=== PATIENT | male | born 1955 | race Two or more races ===

== ENCOUNTER 2017-03-31 16:45 | Emergency (ER) | payer MEDICARE, MEDICAID ==
[2017-03-31] MEDS ORDERED: Acetaminophen 500 MG Tab PO ONE (16:59)
--- NOTE | 2017-03-31 17:04 | EDM.PDOC ---
ED HPI GENERAL MEDICAL PROBLEM - General Chief Complaint: Abdominal Pain Stated Complaint: ABDOMINAL PAIN Time Seen by Provider: 03/31/17 16:50 Source of Information: Reports: Patient, RN History Limitations: Reports: No Limitations - History of Present Illness INITIAL COMMENTS - FREE TEXT/NARRATIVE: 61 yo male here with a 3 d hx of intermittent L sided abdominal pain. Stools slightly hard. No urinary sx's. No fever or nausea. Has had this before and nothing was found. He has not been to the clinic for this. Onset Date: 03/28/17 Duration: Waxing/Waning Location: Reports: Abdomen Quality: Reports: Pressure Severity: Moderate Improves with: Reports: None Worsens with: Reports: None Context: Reports: Other (Hx of the same and nothing was found.) Associated Symptoms: Reports: No Other Symptoms Treatments ENGINE TURNER: Reports: Other (see below) (None) Left Lower Abdominal Pain Score (Numeric/FACES): 6 - Related Data Allergies Allergy/AdvReac Type Severity Reaction Status Date / Time No Known Allergies Allergy Verified 03/31/17 16:56 Home Meds: Home Meds Acetaminophen with Codeine [Tylenol with Codeine #3 Tablet] 1 tab BID 08/26/15 [ History] Past Medical History - Past Health History Medical/Surgical History: Denies Medical/Surgical History Musculoskeletal History: Reports: Arthritis, Back Pain, Chronic Other Musculoskeletal History: States he has chronic back pain. Neurological History: Reports: Headaches, Chronic Dermatologic History: Reports: Other (See Below) Other Dermatologic History: NOne - Past Surgical History Other HEENT Surgeries/Procedures: Pt. reports that he does need to have some cartilage removed in his nose. Musculoskeletal Surgical History: Reports: Other (See Below) Other Musculoskeletal Surgeries/Procedures:: L shoulder arthroscopy. L subacromial space decompression with removal of inflamed synovium. L rotator cuff repair (supraspinatus). Date of surgery: 04-03-16 Social & Family History - Family History Family Medical History: Noncontributory - Tobacco Use Smoking Status *Q: Never Smoker Years of Tobacco use: 4 Second Hand Smoke Exposure: No - Caffeine Use Caffeine Use: Reports: Coffee - Alcohol Use Days Per Week of Alcohol Use: 0 - Recreational Drug Use Recreational Drug Use: No ED ROS GENERAL - Review of Systems Review Of Systems: See Below Constitutional: Reports: No Symptoms HEENT: Reports: No Symptoms Respiratory: Reports: No Symptoms Cardiovascular: Reports: No Symptoms GI/Abdominal: Reports: Abdominal Pain. Denies: Black Stool, Bloody Stool, Constipation, Diarrhea, Decreased Appetite, Distension, Flatus, Hematemesis, Hematochezia, Melena, Nausea, Stool Incontinence, Vomiting : Reports: No Symptoms Musculoskeletal: Reports: No Symptoms Skin: Reports: No Symptoms Neurological: Reports: No Symptoms Psychiatric: Reports: No Symptoms ED EXAM, GI/ABD - Physical Exam Exam: See Below Exam Limited By: No Limitations General Appearance: Alert, WD/WN, No Apparent Distress Eyes: Bilateral: Normal Appearance, EOMI Ears: Normal External Exam, Normal Canal, Hearing Grossly Normal, Normal TMs Nose: Normal Inspection, Normal Mucosa, No Blood Throat/Mouth: Normal Inspection, Normal Lips, Normal Oropharynx, Normal Voice, No Airway Compromise Head: Atraumatic, Normocephalic Neck: Normal Inspection, Supple, Non-Tender Respiratory/Chest: No Respiratory Distress, Lungs Clear, Normal Breath Sounds, No Accessory Muscle Use, Chest Non-Tender Cardiovascular: Regular Rate, Rhythm, No Edema GI/Abdominal Exam: Normal Bowel Sounds, Soft, No Distention, Tender (Very minimal L lateral tenderness.). No: Guarding, Rigid, Rebound Back Exam: Normal Inspection. No: CVA Tenderness (R), CVA Tenderness (L) Extremities: Normal Inspection, Normal Range of Motion, Non-Tender, No Pedal Edema Neurological: Alert, Oriented, CN II-XII Intact, Normal Cognition, No Motor/ Sensory Deficits Psychiatric: Normal Affect, Normal Mood Skin Exam: Warm, Dry, Intact, Normal Color, No Rash Lymphatic: No Adenopathy Course - Vital Signs Text/Narrative:: acetaminophen 1000 mg po Last Recorded V/S: Last Vital Signs Temp 37.6 C 03/31/17 16:57 Pulse 88 03/31/17 16:57 Resp 14 03/31/17 16:57 BP 122/74 03/31/17 16:57 Pulse Ox 100 03/31/17 16:57 - Orders/Labs/Meds Labs: Laboratory Tests 03/31/17 03/31/17 03/31/17 Range/Units 17:15 17:15 17:15 WBC 14.8 H (4.5-12.0) X10-3/uL RBC 5.05 (4.30-5.75) x10(6)uL Hgb 15.6 H (11.5-15.5) g/dL Hct 45.6 (30.0-51.3) % MCV 90.2 (80-96) fL MCH 31.0 (27.7-33.6) pg MCHC 34.3 (32.2-35.4) g/dL RDW 12.1 (11.5-15.5) % Plt Count 281 (125-369) X10(3)uL Creatinine 0.9 (0.70-1.30) mg/dL Est Cr Clr Drug Dosing 81.60 mL/min Estimated GFR (MDRD) > 60 (>60) C-Reactive Protein < 0.2 L (0.5-0.9) mg/dL Meds: Medications Discontinued Medications Generic Name Dose Route Start Last Admin Trade Name Freq PRN Reason Stop Dose Admin Acetaminophen 1,000 mg 03/31/17 16:59 03/31/17 17:25 Tylenol Extra Strength PO 03/31/17 17:00 1,000 mg ONETIME ONE Administration Departure - Departure Time of Disposition: 17:51 Disposition: Home, Self-Care 01 Condition: Good Clinical Impression: Nonspecific abdominal pain - Discharge Information Referrals: PCP,None [Primary Care Provider] - Forms: ED Department Discharge Additional Instructions: Miralax 1 capful daily. Acetaminophen 1000 mg every 6 hrs with food. Recheck in the clinic 1-2 days. Return here if worse and unable to get into the clinic. High fiber diet.
[2017-03-31 17:07] VITALS: BP 122/74
== END 2017-03-31 18:40 | disposition home or self-care (01) ==
LOC: FB.ED 16:45
DX: R10.9 Unspecified abdominal pain (principal)
CPT/HCPCS: 36415; 82565; 85027; 86140; 99284; A9270; 99283

== ENCOUNTER 2017-06-06 20:23 | Emergency (ER) | payer MEDICARE, MEDICAID ==
--- NOTE | 2017-06-06 20:35 | EDM.PDOC ---
ED HPI GENERAL MEDICAL PROBLEM - General Stated Complaint: SORE THROAT AND EAR PAIN Time Seen by Provider: 06/06/17 20:23 Source of Information: Reports: Patient History Limitations: Reports: No Limitations, Language Barrier - History of Present Illness INITIAL COMMENTS - FREE TEXT/NARRATIVE: 61 y.o.w.m came to the ed due to sore throat and left ear pain. It hurts to swallow. No F/C no N/V/D or any other acute medical issue. BP 125/83 pulse 87 RR 18 Temp 36.8 Pulse ox 98% on RA Onset Date: 06/06/17 Onset Time: 09:00 Duration: Hour(s):, Intermittent Location: Reports: Face Quality: Reports: Ache, Burning Severity: Moderate Improves with: Reports: None Worsens with: Reports: Movement Sore throat, bilat ear pain Pain Score (Numeric/FACES): 6 - Related Data Allergies Allergy/AdvReac Type Severity Reaction Status Date / Time No Known Allergies Allergy Verified 06/06/17 21:54 Home Meds: Home Meds Acetaminophen with Codeine [Tylenol with Codeine #3 Tablet] 1 tab TID 08/26/15 [ History] Amoxicillin/Potassium Clav [Augmentin 875-125 Tablet] 1 each PO BID #20 tablet 06/06/17 [Rx] Celecoxib 200 mg BID 06/06/17 [History] Hydrocodone/Acetaminophen [Hydrocodon-Acetaminophen 5-325] 1 tab BID PRN [History] Past Medical History - Past Health History Medical/Surgical History: Denies Medical/Surgical History Musculoskeletal History: Reports: Arthritis, Back Pain, Chronic Other Musculoskeletal History: States he has chronic back pain. Neurological History: Reports: Headaches, Chronic Dermatologic History: Reports: Other (See Below) Other Dermatologic History: NOne - Past Surgical History Other HEENT Surgeries/Procedures: Pt. reports that he does need to have some cartilage removed in his nose. Musculoskeletal Surgical History: Reports: Other (See Below) Other Musculoskeletal Surgeries/Procedures:: L shoulder arthroscopy. L subacromial space decompression with removal of inflamed synovium. L rotator cuff repair (supraspinatus). Date of surgery: 04-03-16 Social & Family History - Family History Family Medical History: Noncontributory - Tobacco Use Smoking Status *Q: Never Smoker Years of Tobacco use: 4 Second Hand Smoke Exposure: No - Caffeine Use Caffeine Use: Reports: Coffee - Alcohol Use Days Per Week of Alcohol Use: 0 - Recreational Drug Use Recreational Drug Use: No ED ROS ENT - Review of Systems Review Of Systems: See Below Constitutional: Reports: No Symptoms HEENT: Reports: Ear Pain, Throat Pain Respiratory: Reports: No Symptoms Cardiovascular: Reports: No Symptoms Endocrine: Reports: No Symptoms GI/Abdominal: Reports: No Symptoms : Reports: No Symptoms Musculoskeletal: Reports: No Symptoms Skin: Reports: No Symptoms Neurological: Reports: No Symptoms Psychiatric: Reports: No Symptoms Hematologic/Lymphatic: Reports: No Symptoms ED EXAM, ENT - Physical Exam Exam: See Below Exam Limited By: No Limitations General Appearance: Alert, WD/WN, Mild Distress Eye Exam: Right Eye: Other, Bilateral Eye: Normal Inspection Ears: TM Dullness, TM Erythema Nose: Normal Inspection, Normal Mucousa Mouth/Throat: Normal Inspection, Normal Gums, Normal Lips, Pharyngeal Erythema Head: Atraumatic, Normocephalic Neck: Normal Inspection, Supple, Non-Tender Respiratory/Chest: No Respiratory Distress, Lungs Clear, Normal Breath Sounds, No Accessory Muscle Use, Chest Non-Tender Cardiovascular: Normal Peripheral Pulses, Regular Rate, Rhythm, No Edema GI/Abdominal: Normal Bowel Sounds, Soft, Non-Tender, No Organomegaly, No Abnormal Bruit, No Mass (Male) Exam: Deferred Rectal (Males) Exam: Deferred Back: Normal Inspection, Full Range of Motion Extremities: Normal Inspection, Normal Range of Motion, Non-Tender, No Pedal Edema Neurological: Alert, Oriented, CN II-XII Intact, Normal Cognition, Normal Gait Psychiatric: Normal Affect, Normal Mood Skin: Warm, Dry, Intact, Normal Color, No Rash Lymphatic: No Adenopathy Course - Vital Signs Text/Narrative:: 61 y.o.w.m came to the ed due to sore throat and left ear pain. It hurts to swallow. No F/C no N/V/D or any other acute medical issue. BP 125/83 pulse 87 RR 18 Temp 36.8 Pulse ox 98% on RA PE: WNWD W M wiuth sore throat and left earpain Labs: RST neg and Influenza neg Cx are pending Impression: Pharyngitis )strep presumed) Left OM/OE Tx: Augmentin, Cortisporine Reexam: Improved Plan: D/C with instructions Last Recorded V/S: Last Vital Signs Temp 37.0 C 06/06/17 20:36 Pulse 83 06/06/17 20:36 Resp 18 06/06/17 22:05 BP 116/82 06/06/17 22:05 Pulse Ox 98 06/06/17 22:05 - Orders/Labs/Meds Orders: Active Orders 24 hr Category Date Time Status CULTURE STREP A CONFIRMATION [RM] Stat Lab 06/06/17 20:35 Results INFLUENZA A+B AG SCREEN [RM] Stat Lab 06/06/17 20:35 Ordered STREP SCRN A RAPID W CULT CONF [] Stat Lab 06/06/17 20:35 Ordered Meds: Medications Discontinued Medications Generic Name Dose Route Start Last Admin Trade Name Yaritza PRN Reason Stop Dose Admin Amoxicillin/Clavulanate Potassium 1 tab 06/06/17 21:53 06/06/17 22:04 Augmentin 875 Mg/125 Mg PO 06/06/17 21:54 1 tab ONETIME ONE Administration Departure - Departure Time of Disposition: 21:52 Disposition: Home, Self-Care 01 Condition: Good Clinical Impression: Pharyngitis Otitis media Qualifiers: Otitis media type: unspecified Chronicity: acute Qualified Code(s): H66.90 - Otitis media, unspecified, unspecified ear - Discharge Information Prescriptions: Amoxicillin/Potassium Clav [Augmentin 875-125 Tablet] 1 each PO BID #20 tablet Instructions: Amoxicillin; Clavulanic Acid tablets, Otitis Media, Adult, Easy- to-Read, Pharyngitis, [id number] Referrals: Danette Bazan, PLAN MANAGER [Primary Care Provider] - Forms: ED Department Discharge Additional Instructions: Please take the Augmentin as recommended, please take tylenol/advil for pain please follow up at clinic in next 2-3 days at clinic for recheck, come back if your symptoms get worse acutely. Increase fluids. - My Orders Last 24 Hours: My Active Orders 06/06/17 20:35 CULTURE STREP A CONFIRMATION [RM] Stat INFLUENZA A+B AG SCREEN [RM] Stat STREP SCRN A RAPID W CULT CONF [] Stat - Assessment/Plan Last 24 Hours: My Active Orders 06/06/17 20:35 CULTURE STREP A CONFIRMATION [RM] Stat INFLUENZA A+B AG SCREEN [RM] Stat STREP SCRN A RAPID W CULT CONF [RM] Stat
[2017-06-06] MEDS ORDERED: Amoxicillin/Clavulanate K 875-125 MG Tab PO ONE (21:53)
[2017-06-07 01:20] VITALS: BP 116/82
== END 2017-06-06 22:07 | disposition home or self-care (01) ==
LOC: FB.ED 20:23
DX: H66.92 Otitis media, unspecified, left ear (principal); H60.92 Unspecified otitis externa, left ear; J02.9 Acute pharyngitis, unspecified
CPT/HCPCS: 87081; 87804; 87880; 99283; A9270

== ENCOUNTER 2018-04-18 12:02 | Emergency (ER) | payer MEDICARE, MEDICAID ==
--- NOTE | 2018-04-18 12:28 | EDM.PDOC ---
ED HPI GENERAL MEDICAL PROBLEM - General Stated Complaint: RIGHT KNEE PAIN Time Seen by Provider: 04/18/18 12:02 Source of Information: Reports: Patient, Family History Limitations: Reports: No Limitations - History of Present Illness INITIAL COMMENTS - FREE TEXT/NARRATIVE: 62 y.o.male came to the ed with hsi sister because of right knee pain. Pt is scheduled for an MRI of his right knee. No trauma. Pt has FROM of his right knee and no swelling. His PMD gave him [place] every 6 hours as needed. The patient is here for the question if he could tale 1-2 pills every 6 hours instead of only 1 pill every 6 hours as needed. He denies SOB. N/V/D no dizziness. He requested to be transported by wheel chair in and out from the ed even though he could walk. No other acute medical issues. BP 135/76 RR 16 Pulse ox 98% on RA pulse 68 Temp 36.6 Onset Date: 04/10/18 Onset Time: 05:00 Duration: Day(s):, Week(s): Location: Reports: Lower Extremity, Right (knee) Quality: Reports: Burning, Dull, Same as Previous Episode Severity: Mild Improves with: Reports: Rest Worsens with: Reports: Movement Context: Reports: Other Associated Symptoms: Reports: No Other Symptoms right knee Pain Score (Numeric/FACES): 5 - Related Data Allergies Allergy/AdvReac Type Severity Reaction Status Date / Time No Known Allergies Allergy Verified 06/06/17 21:54 Home Meds: Home Meds Acetaminophen with Codeine [Tylenol with Codeine #3 Tablet] 1 tab TID 08/26/15 [ History] Amoxicillin/Potassium Clav [Augmentin 875-125 Tablet] 1 each PO BID #20 tablet 06/06/17 [Rx] Celecoxib 200 mg BID 06/06/17 [History] Hydrocodone/Acetaminophen [Hydrocodon-Acetaminophen 5-325] 1 tab BID PRN [History] Past Medical History - Past Health History Medical/Surgical History: Denies Medical/Surgical History HEENT History: Reports: None Respiratory History: Reports: Asthma Musculoskeletal History: Reports: Arthritis, Back Pain, Chronic Other Musculoskeletal History: States he has chronic back pain. Neurological History: Reports: Headaches, Chronic Psychiatric History: Reports: Anxiety Endocrine/Metabolic History: Reports: Obesity/BMI 30+ Dermatologic History: Reports: Other (See Below) Other Dermatologic History: NOne - Infectious Disease History Infectious Disease History: Reports: Chicken Pox - Past Surgical History Other HEENT Surgeries/Procedures: Pt. reports that he does need to have some cartilage removed in his nose. Musculoskeletal Surgical History: Reports: Other (See Below) Other Musculoskeletal Surgeries/Procedures:: L shoulder arthroscopy. L subacromial space decompression with removal of inflamed synovium. L rotator cuff repair (supraspinatus). Date of surgery: 04-03-16 Social & Family History - Family History Family Medical History: Noncontributory - Caffeine Use Caffeine Use: Reports: Coffee ED ROS GENERAL - Review of Systems Review Of Systems: See Below Constitutional: Reports: No Symptoms HEENT: Reports: No Symptoms Respiratory: Reports: No Symptoms Cardiovascular: Reports: No Symptoms Endocrine: Reports: No Symptoms GI/Abdominal: Reports: No Symptoms : Reports: No Symptoms Musculoskeletal: Reports: Joint Pain (knee) Skin: Reports: No Symptoms Neurological: Reports: No Symptoms Psychiatric: Reports: No Symptoms Hematologic/Lymphatic: Reports: No Symptoms Immunologic: Reports: No Symptoms ED EXAM, GENERAL - Physical Exam Exam: See Below Exam Limited By: No Limitations General Appearance: Alert, WD/WN, Mild Distress, Thin Eye Exam: Bilateral Eye: Normal Inspection Ears: Normal External Exam Ear Exam: Bilateral Ear: Auricle Normal Nose: Normal Inspection, Normal Mucosa, No Blood Throat/Mouth: Normal Inspection, Normal Lips, Normal Voice, No Airway Compromise Head: Atraumatic, Normocephalic Neck: Normal Inspection, Supple, Non-Tender Respiratory/Chest: No Respiratory Distress, Lungs Clear, Normal Breath Sounds, Chest Non-Tender Cardiovascular: Normal Peripheral Pulses, Regular Rate, Rhythm, No Edema, No JVD GI/Abdominal: Normal Bowel Sounds, Soft, Non-Tender, No Abnormal Bruit, No Mass , Pelvis Stable (Male) Exam: Deferred Rectal (Males) Exam: Deferred Back Exam: Normal Inspection, Full Range of Motion Extremities: Normal Inspection, Normal Range of Motion, Non-Tender, No Pedal Edema, Other (pt says he has pain in his right knee, his PMD gave him norco for knee pain) Neurological: Alert, Oriented, CN II-XII Intact, Normal Cognition Psychiatric: Normal Affect, Normal Mood Skin Exam: Warm, Dry, Intact, Normal Color, No Rash Lymphatic: No Adenopathy Course - Vital Signs Text/Narrative:: 62 y.o.male came to the ed with hsi sister because of right knee pain. Pt is scheduled for an MRI of his right knee. No trauma. Pt has FROM of his right knee and no swelling. His PMD gave him [place] every 6 hours as needed. The patient is here for the question if he could tale 1-2 pills every 6 hours instead of only 1 pill every 6 hours as needed. He denies SOB. N/V/D no dizziness. He requested to be transported by wheel chair in and out from the ed even though he could walk. No other acute medical issues. BP 135/76 RR 16 Pulse ox 98% on RA pulse 68 Temp 36.6 WNWD male in no NAD. FROM of all his extremities, no swelling. Asking if he can douple his [place] dose. The side effects from [place] were explained to Pt Labs/Imaging: Not indicated Impression: 1)H/O right knee discomfort, 2)medical advice Tx: None in the ED Reexam: Pt was doing fine, requesting to be escorted by wheel chair to the ed waiting room where his sister was waiting for him, he was able to ambulate, had no pain Plan: D/C with instructions Last Recorded V/S: Last Vital Signs Temp 36.6 C 04/18/18 12:40 Pulse 68 04/18/18 12:40 Resp 17 04/18/18 12:40 BP 135/76 04/18/18 12:40 Pulse Ox 96 04/18/18 12:40 Departure - Departure Time of Disposition: 12:25 Disposition: Home, Self-Care 01 Condition: Good Clinical Impression: Knee pain, right Qualifiers: Chronicity: chronic Qualified Code(s): M25.561 - Pain in right knee - Discharge Information Referrals: Danette Bazan NP [Primary Care Provider] - Forms: ED Department Discharge Additional Instructions: Please apply ice to the affected area, please take the medication for sevee pain only and f/u with you Doctor as scheduled this Friday
[2018-04-18 13:21] VITALS: BP 135/76
== END 2018-04-18 12:50 | disposition home or self-care (01) ==
LOC: FB.ED 12:02
DX: M25.561 Pain in right knee (principal)
CPT/HCPCS: 99282

== ENCOUNTER 2018-04-24 22:14 | Emergency (ER) | payer MEDICARE, MEDICAID ==
[2018-04-24] MEDS ORDERED: Ibuprofen 600 MG Tab PO ONE (22:36)
--- NOTE | 2018-04-24 22:40 | EDM.PDOC ---
ED HPI GENERAL MEDICAL PROBLEM - General Chief Complaint: Lower Extremity Injury/Pain Stated Complaint: PAIN IN RIGHT KNEE Time Seen by Provider: 04/24/18 22:14 Source of Information: Reports: Patient History Limitations: Reports: No Limitations - History of Present Illness INITIAL COMMENTS - FREE TEXT/NARRATIVE: 62 y.o.m walked to te ed, wanting a narcotic shot for his right knee pain. He said again, he has an appointment this Friday for an MRI of his right knee. Pt told me the same story when I saw him last. There was no appointment for an MRI. He received 90 tablets of [place] on 04/10/2018, 40 tablets of [place] on 2018 90 tables of Noro on 03/12/2018 etc from his PMD, all filled at [facility]. He has FROM of his knes with out any discomfort. No N/V/D no Dizziness or any other acute medical issues. He insisted to get a shot of Narcotics for pain. BP 125/82, Pulse ox 97, Pulse 75 Temp 36.8 RR 18 Onset: Unknown/Unsure Onset Date: 04/10/18 Onset Time: 06:00 Duration: Week(s):, Chronic Location: Reports: Lower Extremity, Right Quality: Reports: Dull Severity: Mild (or no pain.) Improves with: Reports: Other (pt is ambulating very well) Worsens with: Reports: Other (not in any obvious pain/discomfort) Context: Reports: Other (pt had multiple vists in this ed requesting Narcotic shots) Associated Symptoms: Reports: No Other Symptoms Treatments MANAGER FIXED INCOME: Reports: Other (see below) (pt was prescibed 90 tables on 2018 and 40 tabls of Hydroco) - Related Data Allergies Allergy/AdvReac Type Severity Reaction Status Date / Time No Known Allergies Allergy Verified 04/24/18 22:29 Home Meds: Home Meds Hydrocodone/Acetaminophen [Hydrocodon-Acetaminophn 10-325] 1 tab PO Q6H PRN [History] Past Medical History - Past Health History Medical/Surgical History: Denies Medical/Surgical History HEENT History: Reports: None Respiratory History: Reports: Asthma Musculoskeletal History: Reports: Arthritis, Back Pain, Chronic Other Musculoskeletal History: States he has chronic back pain. Neurological History: Reports: Headaches, Chronic Psychiatric History: Reports: Anxiety Endocrine/Metabolic History: Reports: Obesity/BMI 30+ Dermatologic History: Reports: Other (See Below) Other Dermatologic History: NOne - Infectious Disease History Infectious Disease History: Reports: Chicken Pox - Past Surgical History Other HEENT Surgeries/Procedures: Pt. reports that he does need to have some cartilage removed in his nose. Musculoskeletal Surgical History: Reports: Other (See Below) Other Musculoskeletal Surgeries/Procedures:: L shoulder arthroscopy. L subacromial space decompression with removal of inflamed synovium. L rotator cuff repair (supraspinatus). Date of surgery: 04-03-16 Social & Family History - Family History Family Medical History: Noncontributory - Caffeine Use Caffeine Use: Reports: Coffee Review of Systems - Review of Systems Review Of Systems: See Below Constitutional: Reports: No Symptoms Eyes: Reports: No Symptoms Ears: Reports: No Symptoms Nose: Reports: No Symptoms Mouth/Throat: Reports: No Symptoms Respiratory: Reports: No Symptoms Cardiovascular: Reports: No Symptoms GI/Abdominal: Reports: No Symptoms Genitourinary: Reports: No Symptoms Musculoskeletal: Reports: No Symptoms Skin: Reports: No Symptoms Neurological: Reports: No Symptoms Psychiatric: Reports: No Symptoms ED EXAM, GENERAL - Physical Exam Exam: See Below Exam Limited By: No Limitations General Appearance: Alert, WD/WN, No Apparent Distress Eye Exam: Bilateral Eye: Normal Inspection Ears: Normal External Exam Ear Exam: Bilateral Ear: Auricle Normal Nose: Normal Inspection, Normal Mucosa, No Blood Throat/Mouth: Normal Lips, Normal Voice, No Airway Compromise, Other (poor dentitiu) Head: Atraumatic, Normocephalic Neck: Normal Inspection, Supple, Non-Tender, Full Range of Motion Respiratory/Chest: No Respiratory Distress, Lungs Clear, Normal Breath Sounds Cardiovascular: Normal Peripheral Pulses, Regular Rate, Rhythm, No Edema Peripheral Pulses: 2+: Brachial (L) GI/Abdominal: Normal Bowel Sounds, Soft, Non-Tender, No Organomegaly, No Abnormal Bruit, No Mass (Male) Exam: Deferred Rectal (Males) Exam: Deferred Back Exam: Normal Inspection, Full Range of Motion Extremities: Normal Inspection, Normal Range of Motion, Non-Tender, No Pedal Edema, Normal Capillary Refill Neurological: Alert, Oriented, CN II-XII Intact, Normal Cognition, Normal Gait Psychiatric: Other (angry) Skin Exam: Warm, Dry, Intact, Normal Color, No Rash Lymphatic: No Adenopathy Course - Vital Signs Text/Narrative:: 62 y.o.m walked to te ed, wanting a narcotic shot for his right knee pain. He said again, he has an appointment this Friday day for an MRI of his right knee. Pt told me the same story when I saw him last. There was no appointment for an MRI. He received 90 tablets of [place] on 04/10/2018, 40 tablets of [place] on 2018 90 tables of Noro on 03/12/2018 etc from his PMD, all filled at [email or web address]. He has FROM of his knes with out any discomfort. No N/V/D no Dizziness or any other acute medical issues. He insisted to get a shot of Narcotics for pain. BP 125/82, Pulse ox 97, Pulse 75 Temp 36.8 RR 18 PE: WNWD M in no acute discomfort, FROM of both knees, no swelling, no redness, nl temp of both knees to touch Imaging/labs: Not indicated Impression: right knee discomfort, drug seeking behavior Tx: Motrin 600 mg one dose, No narcotic were given in the ed Reexam: Pt refused Motrin. He walked very well, without any assistance out of the ed Plan: D/C with instructions - Orders/Labs/Meds Orders: Active Orders 24 hr Category Date Time Status Cooling Warming Measures [RC] ASDIRECTED Care 04/24/18 22:37 Active Ice Bag [Ice Therapy] [OM.PC] Routine Oth 04/24/18 22:37 Ordered Meds: Medications Discontinued Medications Generic Name Dose Route Start Last Admin Trade Name Yaritza PRN Reason Stop Dose Admin Ibuprofen 600 mg 04/24/18 22:36 04/24/18 22:52 Motrin PO 04/24/18 22:37 Not Given ONETIME ONE Departure - Departure Time of Disposition: 22:38 Disposition: Home, Self-Care 01 Condition: Good Clinical Impression: Drug-seeking behavior - Discharge Information Referrals: Danette Bazan NP [Primary Care Provider] - Forms: ED Department Discharge Additional Instructions: Please apply Ice to your right knee, take Motrin if you have pain, please f/u up with your doctor. Please come back if you have acute pain. - My Orders Last 24 Hours: My Active Orders 04/24/18 22:37 Cooling Warming Measures [RC] ASDIRECTED Ice Bag [Ice Therapy] [OM.PC] Routine - Assessment/Plan Last 24 Hours: My Active Orders 04/24/18 22:37 Cooling Warming Measures [RC] ASDIRECTED Ice Bag [Ice Therapy] [OM.PC] Routine
[2018-04-24 23:51] VITALS: BP 125/82
== END 2018-04-24 22:54 | disposition home or self-care (01) ==
LOC: FB.ED 22:14
DX: M25.561 Pain in right knee (principal); Z76.5 Malingerer [conscious simulation]; J45.909 Unspecified asthma, uncomplicated
CPT/HCPCS: 99282

== ENCOUNTER 2018-08-13 23:27 | Emergency (ER) | payer MEDICARE, MEDICAID ==
[2018-08-13] MEDS ORDERED: Ibuprofen 800 MG Tab PO ONE (23:28)
--- NOTE | 2018-08-14 | EDM.PDOC ---
ED HPI GENERAL MEDICAL PROBLEM - General Chief Complaint: Back Pain or Injury Stated Complaint: BACK PAIN Time Seen by Provider: 08/13/18 23:49 Source of Information: Reports: Patient History Limitations: Reports: No Limitations - History of Present Illness INITIAL COMMENTS - FREE TEXT/NARRATIVE: patient presents with concern for acute low back pain which happened when his left knee gave out as he was going into his trailer. This was two days ago. He landed on hands and knees and his back pain seemed to worsen. Tonight the pain was much worse and he was having difficulty sleeping. He has taken one of his prescribed hydrocodone, and also a muscle relaxer around 6pm. Has not tried anything else. Doesn't know of anything that makes it worse or better. has a superficial scrape on his side and and lower legs. No pain going down his leg. History of chronic back pain, on pain contract, walks with a cane. Denies any other medical problems, no diabetes, lung or heart problems. No other symptoms or injury, did not hit his head, no nausea, vomiting, change in bowel habits, urinary symptoms, fever, chills, easy bruising or bleeding. No history of low impact fractures. - Related Data Allergies Allergy/AdvReac Type Severity Reaction Status Date / Time No Known Allergies Allergy Verified 08/13/18 23:44 Home Meds: Home Meds Hydrocodone/Acetaminophen [Hydrocodon-Acetaminophn 10-325] 1 tab PO Q6H PRN [History] Past Medical History HEENT History: Reports: None Cardiovascular History: Reports: None Respiratory History: Reports: Asthma Musculoskeletal History: Reports: Arthritis, Back Pain, Chronic, Other (See Below) (knee gives out sometimes) Other Musculoskeletal History: States he has chronic back pain. On pain contract Neurological History: Reports: Headaches, Chronic Psychiatric History: Reports: Anxiety Endocrine/Metabolic History: Reports: Obesity/BMI 30+. Denies: Diabetes, Type II Dermatologic History: Reports: Other (See Below) Other Dermatologic History: NOne - Infectious Disease History Infectious Disease History: Reports: Chicken Pox - Past Surgical History Other HEENT Surgeries/Procedures: Pt. reports that he does need to have some cartilage removed in his nose. Musculoskeletal Surgical History: Reports: Other (See Below) Other Musculoskeletal Surgeries/Procedures:: L shoulder arthroscopy. L subacromial space decompression with removal of inflamed synovium. L rotator cuff repair (supraspinatus). Date of surgery: 04-03-16 Social & Family History - Family History Family Medical History: Noncontributory - Tobacco Use Smoking Status *Q: Never Smoker - Caffeine Use Caffeine Use: Reports: Coffee - Alcohol Use Alcohol Use History: No - Recreational Drug Use Recreational Drug Use: No ED ROS GENERAL - Review of Systems Review Of Systems: ROS reveals no pertinent complaints other than HPI. ED EXAM, GENERAL - Physical Exam Exam: See Below Free Text/Narrative:: General: alert, pleasant, no acute distress but uncomfortable when changing positions Neuro: reflexes +2/4 (patella required distraction) in both upper and lower extremities bilaterally. Muscle strength +5/5 in foot, lower leg, + seated straight leg test on left, negative on right, quad strength +5/5 on right and +4 /5 on left limited to pain (and maybe cooperation), hamstrings bilaterally +4/5 due to pain, unable to test hip extension. Gait: walks with cane Back: pain with flexion, extension, sidebending both towards and away, tender over paraspinal muscles, palpable bruise on left side also. No spinous process tenderness. Abdomen: soft, nontender no rebound or rigidity Lungs: normal respiratory rate and effort Pulses: +2 at posterior tibia Skin: several abrasions and scraps on lower leg, also on left side of abdomen Course - Vital Signs Text/Narrative:: patient evaluated - no red flags, contusion on side but no midline spinal tenderness, I think xray unhelpful at this point. Acute on chronic mechanical back pain, recommend rest, gentle movements, stretching, ice, ibuprofen. He is already on narcotic pain contract for chronic back pain, also states he has muscle relaxers at home. Will give ibuprofen here and short take-home script for use during acute phase. Departure - Departure Time of Disposition: 00:13 Disposition: Home, Self-Care 01 Condition: Fair Clinical Impression: Acute exacerbation of chronic low back pain - Discharge Information *PRESCRIPTION DRUG MONITORING PROGRAM REVIEWED*: Yes *COPY OF PRESCRIPTION DRUG MONITORING REPORT IN PATIENT SOLITARIO: Yes Instructions: Muscle Strain, [id number] Referrals: PCP,None [Primary Care Provider] - Additional Instructions: can take ibuprofen 800mg tablet every 6 hours. Drink lots of water with this medication to help your kidneys. there is already tylenol in your chronic pain prescription, so you should not take any extra. muscle relaxers may be helpful if change in ability to go to bathroom, numb feeling in your briefs, fever, or pain that makes it so you cannot walk, return to ER can use ice or heat, any topical creams are also ok (icy hot, biofreeze) gentle movement and stretching is good for back injury, as long as not too painful. After 3 days it is important to at least walk some to help the muscles heal appropriately. follow up with PCP if pain persists past 4 days
[2018-08-14] MEDS ORDERED: Ibuprofen 600 MG Tab PO ONE (00:04)
[2018-08-14 00:44] VITALS: BP 110/69
== END 2018-08-14 00:25 | disposition home or self-care (01) ==
LOC: FB.ED 23:27
DX: M54.5 Low back pain (principal); G89.29 Other chronic pain
CPT/HCPCS: 99282; A9270

== ENCOUNTER 2018-09-17 03:38 | Emergency (ER) | payer MEDICARE, MEDICAID ==
--- NOTE | 2018-09-17 04:34 | EDM.PDOC ---
ED HPI GENERAL MEDICAL PROBLEM - General Chief Complaint: Respiratory Problem Stated Complaint: SOB Time Seen by Provider: 09/17/18 04:00 Source of Information: Reports: Patient History Limitations: Reports: No Limitations - History of Present Illness INITIAL COMMENTS - FREE TEXT/NARRATIVE: patient comes in with concern he was unable to sleep and didn't know why. Sometimes he worries about his asthma. Not having any pain. No recent fever, worsening cough, shortness of breath, chest pain, headache, weakness. Able to take stairs at home without difficulty. Occasional low back pain, no other complaints. - Related Data Allergies Allergy/AdvReac Type Severity Reaction Status Date / Time No Known Allergies Allergy Verified 09/17/18 03:45 Home Meds: Home Meds Albuterol/Ipratropium [Combivent Respimat] 4 gm IH Q6H PRN 09/17/18 [History] Baclofen 10 mg PO TID 09/17/18 [History] Celecoxib 200 mg PO BID 09/17/18 [History] Cetirizine [ZyrTEC] 10 mg PO DAILY 09/17/18 [History] Clobetasol [Clobetasol 0.05%] 1 applic TOP BID 09/17/18 [History] Cyanocobalamin (Vitamin B12) [Vitamin B12] 1,000 mcg PO DAILY 09/17/18 [History] DULoxetine HCl [Duloxetine HCl] 40 mg PO BEDTIME 09/17/18 [History] Diclofenac Sodium [Voltaren] 1 applic TP QID PRN 09/17/18 [History] Fluticasone Propionate [Flonase] 2 spray NS DAILY 09/17/18 [History] Gabapentin [Neurontin] 800 mg PO TID 09/17/18 [History] Hydrocodone/Acetaminophen [Hydrocodon-Acetaminophen 5-325] 1 each PO BID [History] Hydrocodone/Acetaminophen [Hydrocodon-Acetaminophn 10-325] 1 each PO BEDTIME 01/26 [History] Ketoconazole [Ketoconazole 2%] 1 gm TOP BID 09/17/18 [History] Montelukast [Singulair] 10 mg PO DAILY 09/17/18 [History] Mupirocin Cream [Bactroban Crm] 1 applic TP BID 09/17/18 [History] Olopatadine [Patanol 0.1% Ophth Soln] 1 drop EYEBOTH BID 09/17/18 [History] Pantoprazole [ProTONIX] 40 mg PO ACBREAKFAST 09/17/18 [History] Pseudoephedrine [Sudafed 12 Hour] 120 mg PO BID 09/17/18 [History] Ranitidine HCl [Ranitidine] 150 mg PO BID 09/17/18 [History] Sodium Chloride 0.65% [[place] Saline] 0.1 ml EMMIE ASDIRECTED PRN 09/17/18 [History] Triamcinolone Acetonide [Triamcinolone Acetonide 0.1% Crm] 1 applic TOP BID 01/26 [History] busPIRone [Buspar] 15 mg PO DAILY 09/17/18 [History] Past Medical History - Past Health History Medical/Surgical History: Denies Medical/Surgical History HEENT History: Reports: None Cardiovascular History: Reports: None Respiratory History: Reports: Asthma Musculoskeletal History: Reports: Arthritis, Back Pain, Chronic, Other (See Below) Other Musculoskeletal History: States he has chronic back pain. On pain contract Neurological History: Reports: Headaches, Chronic Psychiatric History: Reports: Anxiety Endocrine/Metabolic History: Reports: Obesity/BMI 30+ Dermatologic History: Reports: Other (See Below) Other Dermatologic History: NOne - Infectious Disease History Infectious Disease History: Reports: Chicken Pox - Past Surgical History Other HEENT Surgeries/Procedures: Pt. reports that he does need to have some cartilage removed in his nose. Musculoskeletal Surgical History: Reports: Other (See Below) Other Musculoskeletal Surgeries/Procedures:: L shoulder arthroscopy. L subacromial space decompression with removal of inflamed synovium. L rotator cuff repair (supraspinatus). Date of surgery: 04-03-16 Social & Family History - Family History Family Medical History: Noncontributory - Tobacco Use Smoking Status *Q: Never Smoker - Caffeine Use Caffeine Use: Reports: Coffee - Recreational Drug Use Recreational Drug Use: No ED ROS GENERAL - Review of Systems Review Of Systems: ROS reveals no pertinent complaints other than HPI. ED EXAM, GENERAL - Physical Exam Exam: See Below Free Text/Narrative:: General: alert, pleasant no acute distress. Tympanic membranes clear bilaterally with normal light reflex. Throat without erythema, mucus membranes moist, neck supple and no cervical lymphadenopathy. lungs clear throughout with no wheezes or crackles, breathing easily and speaking in full sentences. heart regular rate and rhythm. Peripheral pulses +2 with no lower extremity edema. gait normal. Course - Vital Signs Text/Narrative:: here for insomnia, happens fairly often. Patient states he has appointment with primary tomorrow. Reviewed med list, recommended not taking sudafed at night, also discussed caffeine and basic sleep hygiene. All questions answered and patient agreeable to discharge. F/u with PCP Last Recorded V/S: Last Vital Signs Temp 36.3 C 09/17/18 04:34 Pulse 63 09/17/18 04:34 Resp 16 09/17/18 04:34 BP 142/80 H 09/17/18 04:34 Pulse Ox 97 09/17/18 04:34 Departure - Departure Time of Disposition: 04:31 Disposition: Home, Self-Care 01 Condition: Good Clinical Impression: Insomnia - Discharge Information *PRESCRIPTION DRUG MONITORING PROGRAM REVIEWED*: Not Applicable *COPY OF PRESCRIPTION DRUG MONITORING REPORT IN PATIENT SOLITARIO: Not Applicable Instructions: Insomnia Referrals: Danette Bazan SERVER ENGINEER [Primary Care Provider] - Forms: ED Department Discharge Additional Instructions: show medication list to doctor tomorrow and see if anything else needs changed. I marked the one medication which may be affecting your sleep Do not stay in bed if you can't sleep, get up and sit in a chair with small light on and listen to calm music or read something calming Avoid caffeine after 12:00 noon no TV, computer screen, or playing on phone during the nighttime
[2018-09-17 04:42] VITALS: BP 142/80; PULSE 63
== END 2018-09-17 04:39 | disposition home or self-care (01) ==
LOC: FB.ED 03:38
DX: G47.00 Insomnia, unspecified (principal); J45.909 Unspecified asthma, uncomplicated; F41.9 Anxiety disorder, unspecified; E66.9 Obesity, unspecified; Z79.899 Other long term (current) drug therapy; Z68.30 Body mass index [BMI] 30.0-30.9, adult
CPT/HCPCS: 99282; 99284

== ENCOUNTER 2019-01-29 22:46 | Emergency (ER) | payer MEDICARE, MEDICAID ==
--- NOTE | 2019-01-29 23:12 | EDM.PDOC ---
ED HPI GENERAL MEDICAL PROBLEM - General Stated Complaint: SORE THROAT; COUGH Time Seen by Provider: 01/29/19 23:05 Source of Information: Reports: Patient History Limitations: Reports: No Limitations - History of Present Illness INITIAL COMMENTS - FREE TEXT/NARRATIVE: 63-year-old male with onset of sore throat, nasal congestion and ear pain 4 days ago. He also has developed a cough. The symptoms seem to have worsened and tonight he was unable to sleep secondary to the pain. He has had no measured fever but he has had chills. He rates pain as an 8/10. It is a sharp pain. It seems to be worse with swallowing. He has bilateral itchy eyes as well. He has had no nausea or vomiting. He has been drinking liquids well. His granddaughter was in the emergency department last night and had a positive strep. No problems breathing. He does have some headache with this. There are no other associated signs or symptoms. There are no other modifying factors. Onset: Other (4 days ago) Duration: Getting Worse Location: Reports: Head, Other (Sore throat. 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 below) (Nothing) - Related Data Allergies Allergy/AdvReac Type Severity Reaction Status Date / Time No Known Allergies Allergy Verified 09/17/18 03:45 Home Meds: Home Meds Albuterol/Ipratropium [Combivent Respimat] 4 gm IH Q6H PRN 09/17/18 [History] Baclofen 10 mg PO TID 09/17/18 [History] Celecoxib 200 mg PO BID 09/17/18 [History] Cetirizine [ZyrTEC] 10 mg PO DAILY 09/17/18 [History] Clobetasol [Clobetasol 0.05%] 1 applic TOP BID 09/17/18 [History] Cyanocobalamin (Vitamin B12) [Vitamin B12] 1,000 mcg PO DAILY 09/17/18 [History] DULoxetine HCl [Duloxetine HCl] 40 mg PO BEDTIME 09/17/18 [History] Diclofenac Sodium [Voltaren] 1 applic TP QID PRN 09/17/18 [History] Fluticasone Propionate [Flonase] 2 spray NS DAILY 09/17/18 [History] Gabapentin [Neurontin] 800 mg PO TID 09/17/18 [History] Hydrocodone/Acetaminophen [Hydrocodon-Acetaminophen 5-325] 1 each PO BID [History] Hydrocodone/Acetaminophen [Hydrocodon-Acetaminophn 10-325] 1 each PO BEDTIME 01/26 [History] Ketoconazole [Ketoconazole 2%] 1 gm TOP BID 09/17/18 [History] Montelukast [Singulair] 10 mg PO DAILY 09/17/18 [History] Mupirocin Cream [Bactroban Crm] 1 applic TP BID 09/17/18 [History] Olopatadine [Patanol 0.1% Ophth Soln] 1 drop EYEBOTH BID 09/17/18 [History] Pantoprazole [ProTONIX] 40 mg PO ACBREAKFAST 09/17/18 [History] Pseudoephedrine [Sudafed 12 Hour] 120 mg PO BID 09/17/18 [History] Ranitidine HCl [Ranitidine] 150 mg PO BID 09/17/18 [History] Sodium Chloride 0.65% [[place] Saline] 0.1 ml EMMIE ASDIRECTED PRN 09/17/18 [History] Triamcinolone Acetonide [Triamcinolone Acetonide 0.1% Crm] 1 applic TOP BID 01/26 [History] busPIRone [Buspar] 15 mg PO DAILY 09/17/18 [History] Amoxicillin/Potassium Clav [Augmentin 875-125 Tablet] 1 each PO BID 10 Days #20 tablet 01/29/19 [Rx] Past Medical History Respiratory History: Reports: Asthma Musculoskeletal History: Reports: Arthritis, Back Pain, Chronic, Other (See Below) Other Musculoskeletal History: States he has chronic back pain. On pain contract Neurological History: Reports: Headaches, Chronic Psychiatric History: Reports: Anxiety, Depression Endocrine/Metabolic History: Reports: Obesity/BMI 30+ - Infectious Disease History Infectious Disease History: Reports: Chicken Pox - Past Surgical History Other HEENT Surgeries/Procedures: Pt. reports that he does need to have some cartilage removed in his nose. Musculoskeletal Surgical History: Reports: Shoulder Surgery, Other (See Below) Other Musculoskeletal Surgeries/Procedures:: L shoulder arthroscopy. L subacromial space decompression with removal of inflamed synovium. L rotator cuff repair (supraspinatus). Date of surgery: 04-03-16 Social & Family History - Tobacco Use Smoking Status *Q: Unknown Ever Smoked (Nonsmoker) - Caffeine Use Caffeine Use: Reports: Coffee - Alcohol Use Alcohol Use History: No - Living Situation & Occupation Living situation: Reports: with Family ED ROS ENT - Review of Systems Review Of Systems: See Below Constitutional: Reports: Chills, Malaise HEENT: Reports: Ear Pain, Throat Pain Respiratory: Reports: Cough. Denies: Shortness of Breath Cardiovascular: Reports: No Symptoms Endocrine: Reports: No Symptoms GI/Abdominal: Reports: No Symptoms : Reports: No Symptoms Musculoskeletal: Reports: No Symptoms Skin: Reports: No Symptoms Neurological: Reports: Headache Psychiatric: Reports: No Symptoms Hematologic/Lymphatic: Reports: No Symptoms Immunologic: Reports: No Symptoms ED EXAM, ENT - Physical Exam Exam: See Below Exam Limited By: No Limitations General Appearance: Alert, WD/WN, Moderate Distress (Appears in some discomfort but otherwise nontoxic.) Eye Exam: Bilateral Eye: EOMI, Normal Inspection, PERRL Ears: Normal External Exam, Normal Canal, TM Bulging, TM Erythema Nose: No Blood, Nasal Discharge Mouth/Throat: Pharyngeal Erythema, Other (Moist membranes) Head: Atraumatic, Normocephalic Neck: Normal Inspection, Supple, Non-Tender, Full Range of Motion, Lymphadenopathy (R), Lymphadenopathy (L) Respiratory/Chest: No Respiratory Distress, Lungs Clear, Normal Breath Sounds, No Accessory Muscle Use, Chest Non-Tender Cardiovascular: Normal Peripheral Pulses, Regular Rate, Rhythm, No JVD GI/Abdominal: Normal Bowel Sounds, Soft, Non-Tender, No Mass Back: Normal Inspection, Full Range of Motion Extremities: Normal Inspection, Normal Range of Motion, Non-Tender, No Pedal Edema, Normal Capillary Refill Neurological: Alert, Oriented, CN II-XII Intact, Normal Cognition, No Motor/ Sensory Deficits Skin: Warm, Dry, Intact, Normal Color, No Rash Course - Orders/Labs/Meds Meds: Medications Discontinued Medications Generic Name Dose Route Start Last Admin Trade Name Freq PRN Reason Stop Dose Admin Amoxicillin/Clavulanate Potassium 1 tab 01/29/19 23:29 01/29/19 23:35 Augmentin 875 Mg/125 Mg PO 01/29/19 23:30 1 tab ONETIME ONE Administration Dexamethasone 8 mg 01/29/19 23:23 01/29/19 23:30 Dexamethasone PO 01/29/19 23:24 8 mg ONETIME ONE Administration Ibuprofen 400 mg 01/29/19 23:23 01/29/19 23:29 Motrin 100 Mg/5 Ml Susp PO 01/29/19 23:24 400 mg ONETIME ONE Administration - Re-Assessments/Exams Free Text/Narrative Re-Assessment/Exam: 01/29/19 23:25: Patient's grandchild seen in the emergency department last night and had a positive strep. The patient symptoms are consistent with strep. Patient also has bilateral ear infections. I am placing the patient on Augmentin 875 mg by mouth twice a day 10 days. I also gave the patient Decadron 8 mg by mouth in the emergency department to help his pain and discomfort. He should increase his fluid intake. He may take the hydrocodone that he has for more severe pain and ibuprofen as needed for his well. Departure - Departure Time of Disposition: 23:30 Disposition: Home, Self-Care 01 Condition: Good Clinical Impression: Bilateral otitis media Qualifiers: Otitis media type: suppurative Chronicity: acute Recurrence: non-recurrent Spontaneous tympanic membrane rupture: without spontaneous rupture Qualified Code(s): H66.003 - Acute suppurative otitis media without spontaneous rupture of ear drum, bilateral Pharyngitis Qualifiers: Pharyngitis/tonsillitis etiology: unspecified etiology Qualified Code(s): J02.9 - Acute pharyngitis, unspecified - Discharge Information Prescriptions: Amoxicillin/Potassium Clav [Augmentin 875-125 Tablet] 1 each PO BID 10 Days #20 tablet Instructions: Otitis Media, Adult, Selp-jy-Eder, Pharyngitis, Gney-oh-Srho Additional Instructions: You have bilateral ear infections. You also have what appears to be strep throat. You should drink plenty of fluids. You should rest. Ibuprofen tapper balance wheel screw hole to 800 mg by mouth every 6-8 hours as needed for pain. Medication as prescribed (Augmentin 875 mg). Take probiotics or eat yogurt daily while you are on the antibiotics. Back to the emergency department for inability to swallow, trouble breathing, unrelenting vomiting or any other concerning sign or symptom.
[2019-01-29] MEDS ORDERED: Dexamethasone 4 MG/ML SDV PO ONE (23:23)
[2019-01-29] MEDS ORDERED: Ibuprofen Susp 100 MG/5 ML 5 ML UD Cup PO ONE (23:23)
[2019-01-29] MEDS ORDERED: Amoxicillin/Clavulanate K 875-125 MG Tab PO ONE (23:29)
[2019-01-30 07:34] VITALS: BP 125/86; PULSE 83
== END 2019-01-30 00:20 | disposition home or self-care (01) ==
LOC: FB.ED 22:46
DX: H66.003 Acute suppurative otitis media without spontaneous rupture of ear drum, bilateral (principal); J02.9 Acute pharyngitis, unspecified; J45.909 Unspecified asthma, uncomplicated; F41.9 Anxiety disorder, unspecified; F32.9 Major depressive disorder, single episode, unspecified; E66.9 Obesity, unspecified; Z68.28 Body mass index [BMI] 28.0-28.9, adult; Z79.51 Long term (current) use of inhaled steroids; Z79.899 Other long term (current) drug therapy
CPT/HCPCS: 99283; A9270; J1100

== ENCOUNTER 2019-02-11 22:21 | Emergency (ER) | payer MEDICARE, MEDICAID ==
[2019-02-11] MEDS ORDERED: Ibuprofen 800 MG Tab PO ONE (22:43)
[2019-02-11] MEDS ORDERED: Acetaminophen 500 MG Tab PO ONE (22:43)
--- NOTE | 2019-02-11 23:05 | EDM.PDOC ---
ED HPI GENERAL MEDICAL PROBLEM - General Chief Complaint: ENT Problem Stated Complaint: THROAT HURTS Time Seen by Provider: 02/11/19 22:45 Source of Information: Reports: Patient History Limitations: Reports: No Limitations - History of Present Illness INITIAL COMMENTS - FREE TEXT/NARRATIVE: Patient presented to the ED because of sore throat x 1 week. He was treated with augmenting however his sore throat persisted. There is no dyspnea or drooling. Throat Pain Score (Numeric/FACES): 7 - Related Data Allergies Allergy/AdvReac Type Severity Reaction Status Date / Time No Known Allergies Allergy Verified 02/11/19 22:44 Home Meds: Home Meds Albuterol/Ipratropium [Combivent Respimat] 4 gm IH Q6H PRN 09/17/18 [History] Baclofen 10 mg PO TID 09/17/18 [History] Celecoxib 200 mg PO BID 09/17/18 [History] Cetirizine [ZyrTEC] 10 mg PO DAILY PRN 09/17/18 [History] Clobetasol [Clobetasol 0.05%] 1 applic TOP BID 09/17/18 [History] Cyanocobalamin (Vitamin B12) [Vitamin B12] 1,000 mcg PO DAILY 09/17/18 [History] DULoxetine HCl [Duloxetine HCl] 40 mg PO BEDTIME 09/17/18 [History] Diclofenac Sodium [Voltaren] 1 applic TP QID PRN 09/17/18 [History] Fluticasone Propionate [Flonase] 2 spray NS DAILY 09/17/18 [History] Gabapentin [Neurontin] 800 mg PO TID 09/17/18 [History] Hydrocodone/Acetaminophen [Hydrocodon-Acetaminophen 5-325] 1 each PO BID [History] Hydrocodone/Acetaminophen [Hydrocodon-Acetaminophn 10-325] 1 each PO BEDTIME 01/26 [History] Montelukast [Singulair] 10 mg PO DAILY 09/17/18 [History] Mupirocin Cream [Bactroban Crm] 1 applic TP BID 09/17/18 [History] Pantoprazole [ProTONIX] 40 mg PO ACBREAKFAST PRN 09/17/18 [History] Pseudoephedrine [Sudafed 12 Hour] 120 mg PO BID 09/17/18 [History] Ranitidine HCl [Ranitidine] 150 mg PO BID 09/17/18 [History] Sodium Chloride 0.65% [[place] Saline] 0.1 ml EMMIE ASDIRECTED PRN 09/17/18 [History] busPIRone [Buspar] 15 mg PO DAILY 09/17/18 [History] Amoxicillin/Potassium Clav [Augmentin 875-125 Tablet] 1 each PO BID 10 Days #20 tablet 01/29/19 [Rx] Past Medical History - Past Health History Medical/Surgical History: Denies Medical/Surgical History HEENT History: Reports: None Cardiovascular History: Reports: None Respiratory History: Reports: Asthma Musculoskeletal History: Reports: Arthritis, Back Pain, Chronic, Other (See Below) Other Musculoskeletal History: States he has chronic back pain. On pain contract Neurological History: Reports: Headaches, Chronic Psychiatric History: Reports: Anxiety, Depression Endocrine/Metabolic History: Reports: Obesity/BMI 30+ Dermatologic History: Reports: Other (See Below) Other Dermatologic History: NOne - Infectious Disease History Infectious Disease History: Reports: Chicken Pox - Past Surgical History Other HEENT Surgeries/Procedures: Pt. reports that he does need to have some cartilage removed in his nose. Musculoskeletal Surgical History: Reports: Shoulder Surgery, Other (See Below) Other Musculoskeletal Surgeries/Procedures:: L shoulder arthroscopy. L subacromial space decompression with removal of inflamed synovium. L rotator cuff repair (supraspinatus). Date of surgery: 04-03-16 Social & Family History - Family History Family Medical History: Noncontributory - Tobacco Use Smoking Status *Q: Former Smoker Used Tobacco, but Quit: Yes Month/Year Tobacco Last Used: 25 years ago - Caffeine Use Caffeine Use: Reports: Coffee, Tea - Recreational Drug Use Recreational Drug Use: No - Living Situation & Occupation Living situation: Reports: with Family ED ROS ENT - Review of Systems Review Of Systems: See Below Constitutional: Reports: No Symptoms HEENT: Reports: Throat Pain. Denies: Throat Swelling Respiratory: Reports: No Symptoms Cardiovascular: Reports: No Symptoms Endocrine: Reports: No Symptoms GI/Abdominal: Reports: No Symptoms : Reports: No Symptoms Musculoskeletal: Reports: No Symptoms Skin: Reports: No Symptoms Neurological: Reports: No Symptoms Psychiatric: Reports: No Symptoms ED EXAM, ENT - Physical Exam Exam: See Below Exam Limited By: No Limitations General Appearance: Alert, WD/WN, No Apparent Distress Eye Exam: Bilateral Eye: PERRL Ears: Normal External Exam, Normal Canal, Hearing Grossly Normal, Normal TMs Nose: Normal Inspection, Normal Mucousa, No Blood Mouth/Throat: Normal Inspection, Pharyngeal Erythema Head: Atraumatic, Normocephalic Neck: Normal Inspection, Supple, Non-Tender, Full Range of Motion Respiratory/Chest: No Respiratory Distress, Lungs Clear, Normal Breath Sounds, No Accessory Muscle Use, Chest Non-Tender Cardiovascular: Normal Peripheral Pulses, Regular Rate, Rhythm, No JVD, No Murmur, No Rub GI/Abdominal: Normal Bowel Sounds Back: Normal Inspection, Full Range of Motion Extremities: Normal Inspection, Normal Range of Motion Course - Vital Signs Text/Narrative:: strep test -negative ibuprofen 800 mg po x1 tylenol 1000 mg po x1 Last Recorded V/S: Last Vital Signs Temp 36.7 C 02/11/19 23:11 Pulse 65 02/11/19 23:11 Resp 16 02/11/19 23:11 BP 112/69 02/11/19 23:11 Pulse Ox 98 02/11/19 23:11 - Orders/Labs/Meds Meds: Medications Discontinued Medications Generic Name Dose Route Start Last Admin Trade Name Yaritza PRN Reason Stop Dose Admin Acetaminophen 1,000 mg 02/11/19 22:43 02/11/19 22:47 Tylenol Extra Strength PO 02/11/19 22:44 1,000 mg ONETIME ONE Administration Ibuprofen 800 mg 02/11/19 22:43 02/11/19 22:47 Motrin PO 02/11/19 22:44 800 mg ONETIME ONE Administration Departure - Departure Time of Disposition: 23:05 Disposition: Home, Self-Care 01 Condition: Good Clinical Impression: Pharyngitis - Discharge Information Instructions: Pharyngitis Referrals: Danette Bazan NP [Primary Care Provider] - Forms: ED Department Discharge Additional Instructions: please read discharge instruction on sore throat/pharyngitis gurgle with salt and water Take ibuprofen 800 mg with tylenol 1000 mg every 8 hours as needed for pain Follow up as needed
[2019-02-11 23:20] VITALS: BP 112/69; PULSE 65
== END 2019-02-11 23:14 | disposition home or self-care (01) ==
LOC: FB.ED 22:21
DX: J02.9 Acute pharyngitis, unspecified (principal); J45.909 Unspecified asthma, uncomplicated; F41.9 Anxiety disorder, unspecified; F32.9 Major depressive disorder, single episode, unspecified; E66.9 Obesity, unspecified; Z68.28 Body mass index [BMI] 28.0-28.9, adult; Z79.899 Other long term (current) drug therapy
CPT/HCPCS: 87081; 87880-QW; 99283; A9270-GY

== ENCOUNTER 2020-03-26 14:00 | Emergency (ER) | payer MEDICARE, MEDICAID ==
[2020-03-26] MEDS ORDERED: Diphtheria,Pertussis(Acell),Tetanus Vaccine 0.5 ML Syringe IM ONE (14:14)
[2020-03-26 14:21] VITALS: BP 135/87; PULSE 95
--- NOTE | 2020-03-26 14:28 | EDM.PDOC ---
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, vaccines UTD per pt R handed retired, on disability for his back MPMP shows 90 tabs total this month of hc/apap 10/325 and 5/325 PCP Fabiola dorado creat 0.9 from 3m y ago - Related Data Allergies Allergy/AdvReac Type Severity Reaction Status Date / Time No Known Allergies Allergy Verified 03/26/20 14:17 Home Meds: Home Meds Albuterol/Ipratropium [Combivent Respimat] 4 gm IH Q6H PRN 09/17/18 [History] Baclofen 10 mg PO TID 09/17/18 [History] Celecoxib 200 mg PO BID 09/17/18 [History] Cetirizine [ZyrTEC] 10 mg PO DAILY PRN 09/17/18 [History] Clobetasol [Clobetasol 0.05%] 1 applic TOP BID 09/17/18 [History] Cyanocobalamin (Vitamin B12) [Vitamin B12] 1,000 mcg PO DAILY 09/17/18 [History] DULoxetine HCl [Duloxetine HCl] 40 mg PO BEDTIME 09/17/18 [History] Diclofenac Sodium [Voltaren] 1 applic TP QID PRN 09/17/18 [History] Fluticasone Propionate [Flonase] 2 spray NS DAILY 09/17/18 [History] Gabapentin [Neurontin] 800 mg PO TID 09/17/18 [History] Hydrocodone/Acetaminophen [Hydrocodon-Acetaminophen 5-325] 1 each PO BID 09/17/18 [History] Hydrocodone/Acetaminophen [Hydrocodon-Acetaminophn 10-325] 1 each PO BEDTIME 09/17/18 [History] Montelukast [Singulair] 10 mg PO DAILY 09/17/18 [History] Mupirocin Cream [Bactroban Crm] 1 applic TP BID 09/17/18 [History] Pantoprazole [ProTONIX] 40 mg PO ACBREAKFAST PRN 09/17/18 [History] Pseudoephedrine [Sudafed 12 Hour] 120 mg PO BID 09/17/18 [History] Ranitidine HCl [Ranitidine] 150 mg PO BID 09/17/18 [History] Sodium Chloride 0.65% [[place] Saline] 0.1 ml EMMIE ASDIRECTED PRN 09/17/18 [History] busPIRone [Buspar] 15 mg PO DAILY 09/17/18 [History] Amoxicillin/Potassium Clav [Augmentin 875-125 Tablet] 1 each PO BID 10 Days #20 tablet 01/29/19 [Rx] cephALEXin [Cephalexin] 500 mg PO BID #6 tablet 03/26/20 [Rx] Past Medical History - Past Health History Medical/Surgical History: Denies Medical/Surgical History HEENT History: Reports: None Cardiovascular History: Reports: None Respiratory History: Reports: Asthma Musculoskeletal History: Reports: Arthritis, Back Pain, Chronic, Other (See Below) Other Musculoskeletal History: States he has chronic back pain. On pain contract Neurological History: Reports: Headaches, Chronic Psychiatric History: Reports: Anxiety, Depression Endocrine/Metabolic History: Reports: Obesity/BMI 30+ Dermatologic History: Reports: Other (See Below) Other Dermatologic History: NOne - Infectious Disease History Infectious Disease History: Reports: Chicken Pox - Past Surgical History Other HEENT Surgeries/Procedures: Pt. reports that he does need to have some cartilage removed in his nose. Musculoskeletal Surgical History: Reports: Shoulder Surgery, Other (See Below) Other Musculoskeletal Surgeries/Procedures:: L shoulder arthroscopy. L subacromial space decompression with removal of inflamed synovium. L rotator cuff repair (supraspinatus). Date of surgery: 04-03-16 Social & Family History - Family History Family Medical History: No Pertinent Family History - Caffeine Use Caffeine Use: Reports: Coffee, Tea - Living Situation & Occupation Living situation: Reports: with Family ED ROS GENERAL - Review of Systems Review Of Systems: See Below Constitutional: Reports: No Symptoms HEENT: Reports: No Symptoms Respiratory: Reports: No Symptoms Cardiovascular: Reports: No Symptoms Endocrine: Reports: No Symptoms GI/Abdominal: Reports: No Symptoms : Reports: No Symptoms Musculoskeletal: Reports: No Symptoms Skin: Reports: Wound Neurological: Reports: No Symptoms Psychiatric: Reports: No Symptoms Hematologic/Lymphatic: Reports: No Symptoms Immunologic: Reports: No Symptoms ED EXAM, SKIN/RASH Exam: See Below Exam Limited By: No Limitations General Appearance: Alert, WD/WN, No Apparent Distress Head: Atraumatic, Normocephalic Neck: Normal Inspection, Supple, Non-Tender, Full Range of Motion Respiratory/Chest: No Respiratory Distress, Lungs Clear Cardiovascular: Regular Rate, Rhythm, No Edema GI/Abdominal: Soft, Non-Tender Back Exam: Normal Inspection, Full Range of Motion, NT Neurological: Alert, Oriented, CN II-XII Intact, Normal Cognition, Normal Gait, No Motor/Sensory Deficits Psychiatric: Normal Affect, Normal Mood Skin: Other (R index finger with 1 cm flap dorsally over mid prox phalanx just into fat layer, no tendon seen, no deeper extension seen, appears to have been snagged by tooth horizontially and not vertically, several smaller 3-4 mm closed skin lacs distally over distal phalanx, joint spared, no clinical evidence of tendon or joint or nerve injury. 2% lido with epi local used, cleaned x 12 with gauze and NS, 3-0 Prolene x 3 used for closure) Lymphatic: No Adenopathy Departure - Departure Time of Disposition: 14:47 Disposition: DC[facility] 05 Condition: Good Clinical Impression: Dog bite of index finger - Discharge Information *PRESCRIPTION DRUG MONITORING PROGRAM REVIEWED*: Yes *COPY OF PRESCRIPTION DRUG MONITORING REPORT IN PATIENT SOLITARIO: Yes Prescriptions: cephALEXin [Cephalexin] 500 mg PO BID #6 tablet Instructions: Animal Bite, Adult Additional Instructions: To reduce the risk of infection, take cephalexin 500 mg 1 tab 2 times a day for 3 days beginning tomorrow. As it is possible to get an infection despite taking an antibiotic, see a physician the same day for any increase in redness, swelling, pain, warmth, fever or drainage. For pain, take acetaminophen 325 mg 2 tabs and ibuprofen 200 mg 3 tabs 4 times a day for 2 days. Avoid getting wet or immersing in water. See your doctor in 5 days on Friday to remove sutures.
[2020-03-26] MEDS ORDERED: Cephalexin 500 MG Cap PO ONE (14:46)
== END 2020-03-26 15:20 | disposition home or self-care (01) ==
LOC: FB.ED 14:00
DX: S61.250A Open bite of right index finger without damage to nail, initial encounter (principal); J45.909 Unspecified asthma, uncomplicated; E66.9 Obesity, unspecified; Z68.31 Body mass index [BMI] 31.0-31.9, adult; Z23 Encounter for immunization; Z79.899 Other long term (current) drug therapy; W54.0XXA Bitten by dog, initial encounter
CPT/HCPCS: 12001; 90471; 90715; 99283; A9270

== ENCOUNTER 2020-12-10 22:21 | Emergency (ER) | payer MEDICARE, MEDICAID ==
[2020-12-10] MEDS ORDERED: Ketorolac 30 MG/ML SDV IM ONE (22:45)
[2020-12-10 22:47] VITALS: BP 129/89; PULSE 82
--- NOTE | 2020-12-10 22:53 | EDM.PDOC ---
ED HPI GENERAL MEDICAL PROBLEM - General Chief Complaint: Abdominal Pain Stated Complaint: ABDONMINAL PAIN Time Seen by Provider: 12/10/20 22:35 Source of Information: Reports: Patient, RN History Limitations: Reports: Language Barrier (speaks fair Luxembourgish), Other (no access to clinic notes) - History of Present Illness INITIAL COMMENTS - FREE TEXT/NARRATIVE: 64 yo male presents with left lateral abdominal pain. Was seen in a local clinic Friday for this and has a CT of his abd/pelvis scheduled for tomorrow. He was given Vanleer and took 1 on Friday, but none since. No fever. His stools are looser than normal. He had a colonoscopy last about 4 yrs ago but is not able to tell me what was found except that it was not completely normal. He is here with his granddaughter. Was seen here on 03/31/2017 for the exact same sx's and his labs were nearly identical to beto's tests. Onset: Gradual Duration: Day(s):, Getting Worse Location: Reports: Abdomen Quality: Reports: Ache Severity: Moderate Improves with: Reports: Medication Worsens with: Reports: Movement Context: Reports: Other (See HPI) Associated Symptoms: Reports: Other (stools looser than normal). Denies: Fever/Chills, Nausea/Vomiting Treatments DIRECTOR OF FINANCIAL AID: Reports: Other (see below) (none) Left Abdomen Pain Score (Numeric/FACES): 7 - Related Data Allergies Allergy/AdvReac Type Severity Reaction Status Date / Time No Known Allergies Allergy Verified 03/26/20 14:17 Home Meds: Home Meds Albuterol/Ipratropium [Combivent Respimat] 4 gm IH Q6H PRN 09/17/18 [History] Baclofen 10 mg PO TID 09/17/18 [History] Celecoxib 200 mg PO BID 09/17/18 [History] Cetirizine [ZyrTEC] 10 mg PO DAILY PRN 09/17/18 [History] Clobetasol [Clobetasol 0.05%] 1 applic TOP BID 09/17/18 [History] Cyanocobalamin (Vitamin B12) [Vitamin B12] 1,000 mcg PO DAILY 09/17/18 [History] DULoxetine HCl [Duloxetine HCl] 40 mg PO BEDTIME 09/17/18 [History] Diclofenac Sodium [Voltaren] 1 applic TP QID PRN 09/17/18 [History] Fluticasone Propionate [Flonase] 2 spray NS DAILY 09/17/18 [History] Gabapentin [Neurontin] 800 mg PO TID 09/17/18 [History] Hydrocodone/Acetaminophen [Hydrocodon-Acetaminophen 5-325] 1 each PO BID 09/17/18 [History] Hydrocodone/Acetaminophen [Hydrocodon-Acetaminophn 10-325] 1 each PO BEDTIME 09/17/18 [History] Montelukast [Singulair] 10 mg PO DAILY 09/17/18 [History] Mupirocin Cream [Bactroban Crm] 1 applic TP BID 09/17/18 [History] Pantoprazole [ProTONIX] 40 mg PO ACBREAKFAST PRN 09/17/18 [History] Pseudoephedrine [Sudafed 12 Hour] 120 mg PO BID 09/17/18 [History] Ranitidine HCl [Ranitidine] 150 mg PO BID 09/17/18 [History] Sodium Chloride 0.65% [Hamilton Saline] 0.1 ml EMMIE ASDIRECTED PRN 09/17/18 [History] busPIRone [Buspar] 15 mg PO DAILY 09/17/18 [History] Amoxicillin/Potassium Clav [Augmentin 875-125 Tablet] 1 each PO BID 10 Days #20 tablet 01/29/19 [Rx] cephALEXin [Cephalexin] 500 mg PO BID #6 tablet 03/26/20 [Rx] Past Medical History - Past Health History Medical/Surgical History: Denies Medical/Surgical History HEENT History: Reports: None Cardiovascular History: Reports: None Respiratory History: Reports: Asthma Musculoskeletal History: Reports: Arthritis, Back Pain, Chronic, Other (See Below) Other Musculoskeletal History: States he has chronic back pain. On pain contract Neurological History: Reports: Headaches, Chronic Psychiatric History: Reports: Anxiety, Depression, Other (See Below) Other Psychiatric History: previous hx shows drug seeking behavior. Endocrine/Metabolic History: Reports: Obesity/BMI 30+ Dermatologic History: Reports: Other (See Below) Other Dermatologic History: NOne - Infectious Disease History Infectious Disease History: Reports: Chicken Pox - Past Surgical History Other HEENT Surgeries/Procedures: Pt. reports that he does need to have some cartilage removed in his nose. Musculoskeletal Surgical History: Reports: Shoulder Surgery, Other (See Below) Other Musculoskeletal Surgeries/Procedures:: L shoulder arthroscopy. L subacromial space decompression with removal of inflamed synovium. L rotator cuff repair (supraspinatus). Date of surgery: 04-03-16 Social & Family History - Family History Family Medical History: No Pertinent Family History - Caffeine Use Caffeine Use: Reports: Coffee - Living Situation & Occupation Living situation: Reports: with Family ED ROS GENERAL - Review of Systems Review Of Systems: See Below Constitutional: Reports: No Symptoms. Denies: Fever, Chills, Diaphoresis HEENT: Reports: No Symptoms Respiratory: Reports: No Symptoms Cardiovascular: Reports: No Symptoms GI/Abdominal: Reports: Abdominal Pain, Diarrhea (not quite diarrhea, but looser than normal). Denies: Black Stool, Bloody Stool, Constipation, Distension, Melena, Nausea, Vomiting : Reports: No Symptoms Skin: Reports: No Symptoms ED EXAM, GI/ABD - Physical Exam Exam: See Below Exam Limited By: No Limitations General Appearance: Alert, WD/WN, No Apparent Distress Eyes: Bilateral: Normal Appearance Ears: Normal External Exam, Normal Canal, Hearing Grossly Normal Nose: Normal Inspection, No Blood Throat/Mouth: Normal Inspection, Normal Lips, Normal Oropharynx, Normal Voice, No Airway Compromise Head: Atraumatic, Normocephalic Neck: Normal Inspection Respiratory/Chest: No Respiratory Distress, Lungs Clear, Normal Breath Sounds, No Accessory Muscle Use Cardiovascular: Regular Rate, Rhythm, No Edema GI/Abdominal Exam: Soft, No Distention, Rebound, Tender (mild L sided abdominal pain, no guarding, mild rebound tenderness). No: Non-Tender, Distended, Guarding, Rigid Back Exam: Normal Inspection. No: CVA Tenderness (R), CVA Tenderness (L) Extremities: Normal Inspection, Normal Range of Motion, Non-Tender, No Pedal Edema. No: Pedal Edema Neurological: Alert, Oriented, CN II-XII Intact, Normal Cognition, No Motor/Sensory Deficits Psychiatric: Normal Affect, Normal Mood Skin Exam: Warm, Dry, Intact, Normal Color, No Rash Course - Vital Signs Last Recorded V/S: Last Vital Signs Temp 37.1 C 12/10/20 22: Pulse 82 12/10/20 22:21 Resp 18 12/10/20 22: BP 129/89 12/10/20 22:21 Pulse Ox 96 12/10/20 22:21 - Orders/Labs/Meds Labs: Laboratory Tests 12/10/20 12/10/20 Range/Units 22:52 22:52 WBC 13.0 H (3.2-10.1) x10-3/uL RBC 5.03 (3.90-5.90) x10(6)uL Hgb 15.4 (12.9-17.7) g/dL Hct 44.7 (38.3-50.1) % MCV 89.0 (80.8-98.7) fL MCH 30.6 (27.0-33.3) pg MCHC 34.4 (28.7-35.3) g/dL RDW 13.0 (12.4-15.0) % Plt Count 252 (117-477) x10(3)uL C-Reactive Protein < 0.2 L (0.5-0.9) mg/dL Meds: Medications Discontinued Medications Generic Name Dose Route Start Last Admin Trade Name Yaritza PRN Reason Stop Dose Admin Ketorolac Tromethamine 30 mg 12/10/20 22:45 12/10/20 22:54 Ketorolac 30 Mg/Ml Sdv IM 12/10/20 22:46 30 mg ONETIME ONE Administration Departure - Departure Time of Disposition: 23:14 Disposition: Home, Self-Care 01 Condition: Good Clinical Impression: Nonspecific abdominal pain - Discharge Information *PRESCRIPTION DRUG MONITORING PROGRAM REVIEWED*: Not Applicable *COPY OF PRESCRIPTION DRUG MONITORING REPORT IN PATIENT SOLITARIO: Not Applicable Instructions: Abdominal Pain, Adult, [id number] Referrals: Danette Bazan NP [Primary Care Provider] - Forms: ED Department Discharge Additional Instructions: Take acetaminophen 1000 mg every 6 hrs as needed for pain relief. Take Miralax 1 dose every 12 hrs until the pain is gone. Recheck with your doctor in the clinic as needed. Sepsis Event Note (ED) - Focused Exam Vital Signs: Vital Signs Temp Pulse Resp BP Pulse Ox 12/10/20 22:21 37.1 C 82 18 129/89 96
== END 2020-12-10 23:35 | disposition home or self-care (01) ==
LOC: FB.ED 22:21
DX: R10.9 Unspecified abdominal pain (principal); E66.9 Obesity, unspecified; Z68.33 Body mass index [BMI] 33.0-33.9, adult; Z79.899 Other long term (current) drug therapy
CPT/HCPCS: 36415; 85027; 86140; 96372; 99284; J1885

== ENCOUNTER 2021-05-10 21:09 | Emergency (ER) | payer MEDICARE, MEDICAID ==
[2021-05-10] MEDS ORDERED: Ketorolac 30 MG/ML SDV IM ONE (21:33)
[2021-05-10] MEDS ORDERED: hydrOXYzine HCl 50 MG/ML SDV IM ONE (21:33)
[2021-05-10 22:23] VITALS: BP 151/83; PULSE 61
== END 2021-05-10 21:55 | disposition home or self-care (01) ==
LOC: FB.ED 21:09
DX: M54.6 Pain in thoracic spine (principal); J45.909 Unspecified asthma, uncomplicated; E66.9 Obesity, unspecified; Z68.29 Body mass index [BMI] 29.0-29.9, adult; Z79.899 Other long term (current) drug therapy
CPT/HCPCS: 96372; 99283; J1885; J3410

== ENCOUNTER 2022-10-11 22:07 | Emergency (ER) | payer MEDICARE, MEDICAID ==
[2022-10-12 00:04] VITALS: BP 127/74; PULSE 77
== END 2022-10-11 23:00 | disposition home or self-care (01) ==
LOC: FB.ED 22:07
DX: J01.90 Acute sinusitis, unspecified (principal); E66.9 Obesity, unspecified; J45.909 Unspecified asthma, uncomplicated; Z79.899 Other long term (current) drug therapy; Z68.29 Body mass index [BMI] 29.0-29.9, adult
CPT/HCPCS: 99283

== ENCOUNTER 2024-06-05 20:20 | Emergency (ER) | payer MEDICARE, MEDICAID ==
[2024-06-05 20:33] VITALS: BP 135/84; PULSE 74
[2024-06-05] MEDS: Ketorolac 30 MG/ML SDV IM ONE (20:43)
[2024-06-05] MEDS: hydrOXYzine HCl 50 MG/ML SDV IM ONE (20:44)
== END 2024-06-05 20:49 | disposition home or self-care (01) ==
LOC: FB.ED 20:20
DX: M25.561 Pain in right knee (principal); M54.6 Pain in thoracic spine; E66.9 Obesity, unspecified; J45.909 Unspecified asthma, uncomplicated; Z79.899 Other long term (current) drug therapy
CPT/HCPCS: 96372; 99283; J1885; J3410

== ENCOUNTER 2025-03-05 17:27 | Emergency (ER) | payer MEDICARE, MEDICAID ==
[2025-03-05 19:04] VITALS: BP 127/85; PULSE 100
== END 2025-03-05 19:18 | disposition home or self-care (01) ==
LOC: FB.ED 17:27
DX: J20.9 Acute bronchitis, unspecified (principal); J45.909 Unspecified asthma, uncomplicated; Z79.51 Long term (current) use of inhaled steroids; Z87.891 Personal history of nicotine dependence
CPT/HCPCS: 71045; 87428; 87651; 99284; A9270